=== PATIENT | female | born 1960 | race Caucasian/White ===

== ENCOUNTER → 2016-09-08 | Outpatient (CLI) | payer BC, OTHER ==
[~2016-09-08] MED LIST: ADVIN25/60 INH; ALBINS INH; ALBINS/ INH; AMLO5TAB2 PO; BENZ100C18 PO; CLON0.5T3 PO; DOXY100C76 PO; FLNIN/ NAE; INDSR/120 PO; IPRA1AER2 INH; LEVO1TAB35 PO; LORA-741 PO; LOSA100T65 PO; MIRT15TA3 PO; NXM/40 PO; PRED10TA PO; PRED50TA PO; SUCR1TAB PO; THY/30 PO; TIOTCAP INH; VITBC PO
== END | disposition home or self-care (01) ==
LOC: C.LABMFLN 10:25
PROVIDERS: ATTEND Family Medicine
DX: B37.0 Candidal stomatitis (principal)

== ENCOUNTER 2016-10-09 16:21 | Emergency (ER) | payer BC, OTHER ==
[~2016-10-09] VITALS: Ht 162.6 cm; Wt 70.8 kg
[~2016-10-09 16:21] MED LIST changes: -ADVIN25/60 INH; -ALBINS/ INH; -BENZ100C18 PO; -CLON0.5T3 PO; -FLNIN/ NAE; -IPRA1AER2 INH; -LEVO1TAB35 PO; -LOSA100T65 PO; -NXM/40 PO; -PRED50TA PO; -THY/30 PO; -VITBC PO
[2016-10-09 16:29] VITALS: Ht 162.6 cm; Wt 70.8 kg
[2016-10-09] MEDS ORDERED: ACETAMINOPHEN 500 MG TAB PO STA (16:44)
[2016-10-09] MEDS ORDERED: SODIUM CHLORIDE 0.9% 1000ML 1,000 ML IV STA (16:44)
[2016-10-09] MEDS ORDERED: BENZONATATE 100MG CAP PO ONE (16:45)
[2016-10-09 17:07] LABS: BASO % 0.9 %; BASO ABS # 0.05 K/uL (0-0.2); COMPLETE YES; EOS % 1.5 %; IG% 0.2 %; LYMPH % 19.4 %; LYMPH ABS # 1.13 K/uL (1.2-3.4); MEAN CELL VOLUME 94.8 fL (80-100); MEAN CORPUSCULAR HEMOGLOBIN 33.4 pg (25-34); MEAN CORPUSCULAR HGB CONC 35.2 g/dl (32-36); MEAN PLATELET VOLUME 11.4 fL (7.4-10.4); MONO % 16.3 %; NEUT % 61.7 %; PLATELET COUNT 221 K/uL (130-400); RED BLOOD COUNT 4.64 M/uL (4.2-5.4); WHITE BLOOD COUNT 5.83 K/uL (4.8-10.8)
--- NOTE | 2016-10-09 17:23 | DIAGNOSTIC IMAGING REPORT ---
CHEST ONE VIEW PORTABLE CLINICAL HISTORY: Cough and fever. COMPARISON STUDY: No previous studies for comparison. FINDINGS: Lung volumes are normal. There is no consolidation to suggest pneumonia. Minimal linear left basilar opacity is suggestive of atelectasis. Cardiac size is normal. Mediastinal contours are normal. There is no evidence of pulmonary edema. IMPRESSION: No acute cardiopulmonary findings. Electronically signed by: Qasim Pandya M.D. 10/09/2016 5:21 PM Dictated Date/Time: 10/09/2016 5:21 PM
[2016-10-09] MEDS ORDERED: ALBUT/IPRATROP 3MG/0.5MG NEB 3 ML VIAL INH STA (17:26)
[2016-10-09 17:28] LABS: BUN/CREATININE RATIO 10.9 (10-20); CREATININE 0.94 mg/dl (0.60-1.20); POTASSIUM 3.8 mmol/L (3.5-5.1)
[2016-10-09 17:40] VITALS: TEMP 36.9
[2016-10-09] MEDS ORDERED: LOSA100T65 PO (17:42)
[2016-10-09] MEDS ORDERED: FLNIN/ NAE (17:42)
[2016-10-09] MEDS ORDERED: IPRA1AER2 INH (17:42)
[2016-10-09] MEDS ORDERED: NXM/40 PO (17:42)
[2016-10-09] MEDS ORDERED: THY/30 PO (17:42)
[2016-10-09] MEDS ORDERED: ALBINS/ INH (17:42)
[2016-10-09] MEDS ORDERED: CLON0.5T3 PO ×2 (17:42)
[2016-10-09] MEDS ORDERED: VITBC PO (17:42)
[2016-10-09] MEDS ORDERED: ADVIN25/60 INH (17:44)
[2016-10-09] MEDS ORDERED: METHYLPREDNISOLONE 125 MG VIAL IV STA (18:20)
[2016-10-09] MEDS ORDERED: ALBUTEROL 0.083% NEBU SOLN 3 ML VIAL INH STA (18:20)
[2016-10-09] MEDS ORDERED: LEVOFLOXACIN 250 MG TAB PO ONE (18:30)
[2016-10-09] MEDS ORDERED: LEVO1TAB35 PO (19:52)
[2016-10-09] MEDS ORDERED: PRED50TA PO (19:52)
[2016-10-09] MEDS ORDERED: BENZ100C18 PO (19:52)
[2016-10-09 20:04] VITALS: BP 115/82; PULSE 97; O2SAT 93
--- NOTE | 2016-10-09 23:10 | EMERGENCY ROOM VISIT NOTE ---
History Report prepared by Kumar: Familia Lopez Under the Supervision of: Dr. Royce Sanchez D.O. First contact with patient: 16:34 Chief Complaint: ILLNESS Stated Complaint: FLU SYMPTOMS,HARD TIME BREATHING History of Present Illness The patient is a 56 year old female who presents to the Emergency Room with complaints of a persistent fever beginning two days prior to arrival. She currently rates her discomfort as a 10/10 in severity. The patient associates shortness of breath, productive cough with yellow sputum, sinus pressure, right lung pressure with coughing, and a sorethroat with today's symptoms. She states she did not take her temperature but has felt increasingly warm over the past two days. The patient notes she was treated for strep throat last month with a ten day course of antibiotics. She states she was told last spring that she has an enlarged lymph node in her lung, but denies following up in the recommended 3 -6 months. The patient notes a history of COPD, and states she is a current smoker. She states she tried using her inhaler without relief. The patient denies sick contact. Pt denies headache, change in vision, chest pain, nausea, vomiting, diarrhea, pain with urination, and melena. Source of History: patient Onset: two days [employer]CH[employer]ISING [employer]OCIATE Position: other (global) Symptom Intensity: 10/10 Quality: other (fever) Timing: other (persistent) Associated Symptoms: + cough (with yellow ), + fevers, + sorethroat Note: Associated symptoms: sinus pressure, right lung pressure Review of Systems See HPI for pertinent positives & negatives. A total of 10 systems reviewed and were otherwise negative. Past Medical & Surgical Medical Problems: (1) COPD (chronic obstructive pulmonary disease) (2) Strep throat Family History Patient reports no known family medical history. Social History Smoking Status: Current Every Day Smoker Marital Status: Occupation Status: other (housewife) Current/Historical Medications Scheduled Benzonatate (Tessalon Perles), 100 MG PO TID Clonazepam (Klonopin), 0.25 MG PO QAM Clonazepam (Klonopin), 0.5 MG PO QPM Fluticasone Prop/Salmeterol (Advair Diskus 250/50 60 Dose), 1 PUFF INH BID Ipratropium-Albuterol (Combivent Respimat), 1 PUFF INH QID Levofloxacin (Levaquin), 750 MG PO QD@08 Losartan Potassium (Cozaar), 100 MG PO DAILY Prednisone (Prednisone), 50 MG PO DAILY Thyroid ([place] Thyroid), 30 MG PO DAILY Vitamin B Complex (Vitamin B Complex), 1 TAB PO DAILY Scheduled PRN Albuterol Sulf (Proventil 0.083% 2.5MG/3ML), 2.5 MG INH Q6H PRN for Dyspnea Esomeprazole Magnesium (Nexium), 40 MG PO DAILY PRN for Indigestion Fluticasone Propionate (Fluticasone Propionate), 2 SPRAYS SKYLER DAILY PRN for Nasal Congestion Allergies Coded Allergies: Aspirin (Verified Allergy, Intermediate, HIVES, 07/13/15) Penicillins (Verified Allergy, Intermediate, HIVES, 07/13/15) Sulfa Drugs (Verified Allergy, Intermediate, HIVES, 07/13/15) Methimazole (Verified Allergy, Unknown, N/V, LIGHTHEADEDNESS, 07/13/15) Propylthiouracil (Verified Allergy, Unknown, ITCHING, 06/30/15) Thiamazole (Verified Allergy, Unknown, N/V, LIGHTHEADEDNESS, 06/30/15) Cephalexin (Verified Adverse Reaction, Mild, NAUSEA AND VOMITING, 06/30/15) Physical Exam Vital Signs Date Time Temp Pulse Resp B/P Pulse Ox O2 Delivery O2 Flow Rate FiO2 10/09/16 20:04 97 18 115/82 93 10/09/16 18:49 84 18 134/90 95 Room Air 10/09/16 17:40 36.9 78 18 138/99 98 Room Air 10/09/16 16:29 37.8 100 20 152/99 93 Room Air Physical Exam GENERAL: sitting up in bed, disheveled, no acute distress, non-toxic EYE EXAM: normal conjunctiva OROPHARYNX: no exudate, no erythema, lips, buccal mucosa, and tongue normal and mucous membranes are moist NECK: supple, no nuchal rigidity, no adenopathy, non-tender LUNGS: Clear to auscultation. Normal chest wall mechanics HEART: no murmurs, S1 normal and S2 normal ABDOMEN: abdomen soft, non-tender, normo-active bowel sounds, no masses, no rebound or guarding. BACK: Back is symmetrical on inspection and there is no deformity, no midline tenderness, no CVA tenderness. SKIN: no rashes and no bruising UPPER EXTREMITIES: upper extremities are grossly normal. LOWER EXTREMITIES: No pitting edema. Calves equal bilaterally. NEURO EXAM: Normal sensorium, cranial nerves II-XII grossly intact, normal speech, no gross weakness of arms, no gross weakness of legs. Medical Decision & Procedures ER Provider Diagnostic Interpretation: Xray results per the radiologist and my interpretation. Other results have been interpreted by the radiologist and reviewed by me. CHEST ONE VIEW PORTABLE CLINICAL HISTORY: Cough and fever. COMPARISON STUDY: No previous studies for comparison. FINDINGS: Lung volumes are normal. There is no consolidation to suggest pneumonia. Minimal linear left basilar opacity is suggestive of atelectasis. Cardiac size is normal. Mediastinal contours are normal. There is no evidence of pulmonary edema. IMPRESSION: No acute cardiopulmonary findings. Electronically signed by: Qasim Pandya M.D. 10/09/2016 5:21 PM Laboratory Results 10/09/16 17:00 Red Blood Count 4.64, Mean Corpuscular Volume 94.8, Mean Corpuscular Hemoglobin 33.4, Mean Corpuscular Hemoglobin Concent 35.2, Mean Platelet Volume 11.4, Neutrophils (%) (Auto) 61.7, Lymphocytes (%) (Auto) 19.4, Monocytes (%) (Auto) 16.3, Eosinophils (%) (Auto) 1.5, Basophils (%) (Auto) 0.9, Neutrophils # (Auto ) 3.60, Lymphocytes # (Auto) 1.13, Monocytes # (Auto) 0.95, Eosinophils # (Auto ) 0.09, Basophils # (Auto) 0.05 10/09/16 17:00 Test 10/09/16 17:00 White Blood Count 5.83 K/uL (4.8-10.8) Red Blood Count 4.64 M/uL (4.2-5.4) Hemoglobin 15.5 g/dL (12.0-16.0) Hematocrit 44.0 % (37-47) Mean Corpuscular Volume 94.8 fL (80-100) Mean Corpuscular Hemoglobin 33.4 pg (25-34) Mean Corpuscular Hemoglobin Concent 35.2 g/dl (32-36) Platelet Count 221 K/uL (130-400) Mean Platelet Volume 11.4 fL (7.4-10.4) Neutrophils (%) (Auto) 61.7 % Lymphocytes (%) (Auto) 19.4 % Monocytes (%) (Auto) 16.3 % Eosinophils (%) (Auto) 1.5 % Basophils (%) (Auto) 0.9 % Neutrophils # (Auto) 3.60 K/uL (1.4-6.5) Lymphocytes # (Auto) 1.13 K/uL (1.2-3.4) Monocytes # (Auto) 0.95 K/uL (0.11-0.59) Eosinophils # (Auto) 0.09 K/uL (0-0.5) Basophils # (Auto) 0.05 K/uL (0-0.2) RDW Standard Deviation 45.6 fL (36.4-46.3) RDW Coefficient of Variation 13.1 % (11.5-14.5) Immature Granulocyte % (Auto) 0.2 % Immature Granulocyte # (Auto) 0.01 K/uL (0.00-0.02) Anion Gap 11.0 mmol/L (3-11) Est Creatinine Clear Calc Drug Dose 66.1 ml/min Estimated GFR () 79.7 Estimated GFR (Non- 68.8 BUN/Creatinine Ratio 10.9 (10-20) Calcium Level 9.0 mg/dl (8.5-10.1) Influenza Type A Antigen Neg for Influ A (NEG) Influenza Type B Antigen Neg for Influ B (NEG) Laboratory results per my review. Medications Administered Medications (Trade) Dose Ordered Sig/Giselle Route Start Time Stop Time Status Last Admin Dose Admin Sodium Chloride (Nss 1000ml) 1,000 ml @ 999 mls/hr Q1H1M STAT IV 10/09/16 16:44 10/09/16 17:44 DC 10/09/16 17:05 999 MLS/HR Benzonatate (Tessalon Perles Cap) 100 mg NOW ONCE PO 10/09/16 16:45 10/09/16 16:46 DC 10/09/16 17:05 100 MG Acetaminophen (Tylenol Tab) 1,000 mg NOW STAT PO 10/09/16 16:44 10/09/16 16:46 DC 10/09/16 17:04 1,000 MG Albuterol/ Ipratropium (Duoneb) 3 ml NOW STAT INH 10/09/16 17:26 10/09/16 17:27 DC 10/09/16 17:31 3 ML Albuterol Sulfate (Ventolin 0.083% 2.5MG/3ML Neb) 2.5 mg NOW STAT INH 10/09/16 18:20 10/09/16 18:23 DC 10/09/16 18:39 2.5 MG Methylprednisolone Sodium Succinate (Solu-Medrol IV) 125 mg NOW STAT IV 10/09/16 18:20 10/09/16 18:23 DC 10/09/16 18:39 125 MG Levofloxacin (Levaquin Tab) 750 mg NOW ONCE PO 10/09/16 18:30 10/09/16 18:31 DC 10/09/16 18:39 750 MG ECG Indication: SOB/dyspnea Rate (beats per minute): 87 Rhythm: sinus rhythm Findings: Q waves (Septal), no ectopy Comparison ECG Date: no prior available ED Course ED COURSE: Vital signs were reviewed and showed tachycardic and febrile vitals. The patients medical record was reviewed The above diagnostic studies were performed and reviewed. ED treatments and interventions as stated above. 1637: The patient was evaluated in room B11B. A complete history and physical examination was performed. 1644: Ordered Tylenol Tab 1,000 mg PO, Sodium Chloride 1,000 ml @ 999 mls/hr IV. 1645: Ordered Benzonatate 100 mg PO. 1726: Ordered Duoneb 3 ml INH. 1815: Reevaluated and updated the patient at this time, and she is feeling better. 1820: Ordered Methylprednisolone Sodium Succinate 125 mg IV, Albuterol Sulfate 2.5 mg INH. 1830: Ordered Levaquin Tab 750 mg PO. 5: Upon reevaluation, the patient is doing well.I discussed my findings with the patient and she understands and agrees with the treatment plan. Based on the patients age, coexisting illnesses, exam and lab findings the decision to treat as an outpatient was made. The patient remained stable while under my care. The patient appeared well at the time of discharge. Medical Decision Differential diagnosis: Etiologies such as viral syndrome, otitis, pharyngitis, pneumonia, influenza, meningitis, urinary tract infection, sepsis, bacteremia, as well as others were entertained. Patient is a 56-year-old female who presents the ER for productive cough associated with sore throat and congestion which is been present for the past 24 hours. Labs show no significant leukocytosis or anemia. BMP was unremarkable. Patient denies any exertional chest pain or shortness of breath. No history of diabetes, hypertension, hyperlipidemia or CAD. Patient does have a history of COPD. She had some improvement of her symptoms with the neb treatment along with steroids and Tessalon Perles. She did become tachycardic with the 2 separate neb treatments. At no point was she dyspneic with conversation. She notes that she did feel better. I gave her dose of Levaquin as I feel this is a bronchitis. There is no focal infiltrate on chest x-ray. She denied any swelling of her calves, hemoptysis, previous blood clots. Based on her symptoms I did not pursue a PE. I did not pursue cardiac etiology either as this appears to be clearly infectious. Patient was updated bedside discharged follow-up with her PCP. She was instructed to continue her neb treatments at home along with steroids and antibiotics. Discussed with Pt concerning signs and symptoms to watch out for. Pt was instructed to follow up with their PCP and discussed with the patient their option to return to the ED at anytime for persistent or worsening symptoms. The appropriate anticipatory guidance and out-patient management, including indications for return to the emergency department, were explained at length to the patient and understood. Impression Primary Impression: COPD exacerbation Additional Impression: Bronchitis Scribe Attestation The scribe's documentation has been prepared under my direction and personally reviewed by me in its entirety. I confirm that the note above accurately reflects all work, treatment, procedures, and medical decision making performed by me. Departure Information Dispostion Home / Self-Care Prescriptions Levofloxacin (Levaquin) 750 Mg Tab 750 MG PO QD@08, #9 TAB Prov: Royce Sanchez, DO 10/09/16 Benzonatate (TESSALON PERLES) 100 Mg Cap 100 MG PO TID, #30 CAP Prov: Royce Sanchez, DO 10/09/16 Prednisone (PREDNISONE) 50 Mg Tab 50 MG PO DAILY for 4 Days, TAB Prov: Royce Sanchez, DO 10/09/16 Referrals Kenny Guevara M.D. (PCP) Forms HOME CARE DOCUMENTATION FORM, IMPORTANT VISIT INFORMATION, WORK / SCHOOL INSTRUCTIONS Patient Instructions ED Bronchitis Abx Tx, My [facility] Additional Instructions Please follow up with your primary care doctor with in the next 24 hours. Any worsening of your symptoms, please return to the ED immediately. This includes any fevers greater than 100.4, or system or worsening shortness breath, passing out, or any other concerning signs or symptoms from your standpoint. Please take Tessalon Perles as needed for coughing. Please use your inhalers as previously prescribed at home. Please use the steroids as prescribed. Problem Qualifiers
== END 2016-10-09 20:05 | disposition home or self-care (01) ==
LOC: C.EDB 16:22
DX: J44.1 Chronic obstructive pulmonary disease with (acute) exacerbation (principal); J44.0 Chronic obstructive pulmonary disease with (acute) lower respiratory infection; F17.210 Nicotine dependence, cigarettes, uncomplicated; Z79.899 Other long term (current) drug therapy

== ENCOUNTER → 2016-10-25 | Outpatient (CLI) | payer OTHER ==
[~2016-10-25] MED LIST changes: +ADVIN25/60 INH; -ALBINS INH; +ALBINS/ INH; -AMLO5TAB2 PO; +CLON0.5T3 PO; -DOXY100C76 PO; +FLNIN/ NAE; -INDSR/120 PO; +IPRA1AER2 INH; +LEVO1TAB35 PO; -LORA-741 PO; +LOSA100T65 PO; -MIRT15TA3 PO; +NXM/40 PO; -PRED10TA PO; -SUCR1TAB PO; +THY/30 PO; -TIOTCAP INH; +VITBC PO
[2016-10-25 18:51] LABS: BASO % 0.4 %; BASO ABS # 0.03 K/uL (0-0.2); COMPLETE YES; EOS % 2.7 %; IG% 0.3 %; LYMPH % 23.3 %; MEAN CORPUSCULAR HEMOGLOBIN 31.8 pg (25-34); MEAN CORPUSCULAR HGB CONC 33.9 g/dl (32-36); MEAN PLATELET VOLUME 11.9 fL (7.4-10.4); MONO % 8.4 %; NEUT % 64.9 %; PLATELET COUNT 275 K/uL (130-400); RED BLOOD COUNT 4.68 M/uL (4.2-5.4)
[2016-10-25 19:00] LABS: ALKALINE PHOSPHATASE 112 U/L (45-117); ALT/SGPT 29 U/L (12-78); AST/SGOT 11 U/L (15-37); C-REACTIVE PROTEIN 3.03 mg/dl (0-0.29); THYROID STIMULATING HORMONE 0.853 uIu/ml (0.300-4.500)
[2016-10-25 19:15] LABS: URINE APPEARANCE CLEAR (CLEAR); URINE BILIRUBIN NEG (NEG); URINE COLOR YELLOW; URINE EPITHELIAL CELL AUTO 0-5 /lpf (0-5); URINE NITRITE NEG (NEG); UROBILINOGEN NEG (NEG)
[2016-10-25 19:36] LABS: MANUAL MICROSCOPIC REQUIRED? NO; REVIEW REQ? NO
== END | disposition home or self-care (01) ==
LOC: C.LABMFLN 11:27
PROVIDERS: ATTEND Family Medicine
DX: E89.0 Postprocedural hypothyroidism (principal); R50.9 Fever, unspecified; I69.398 Other sequelae of cerebral infarction

== ENCOUNTER → 2016-11-01 | Outpatient (CLI) | payer OTHER | END | disposition home or self-care (01) | LOC: C.LABMFLN 15:09 | PROVIDERS: ATTEND Family Medicine | DX: J02.9 Acute pharyngitis, unspecified (principal) ==

== ENCOUNTER → 2016-11-14 | Outpatient (CLI) | payer OTHER ==
[~2016-11-14] MED LIST changes: +OPTIRAY 320 IV PRN
--- NOTE | 2016-11-14 16:09 | DIAGNOSTIC IMAGING REPORT ---
CT OF THE CHEST WITH IV CONTRAST CLINICAL HISTORY: R59.0 Mediastinal [id number] Abnormal chest [id number] COMPARISON STUDY: Chest x-ray dated 10/09/2016, outside CT scan dated 12/16/2015. TECHNIQUE: Following the IV administration of 104 mL of Optiray-320, CT of the thorax was performed from the thoracic inlet to the lung bases. Images are reviewed in the axial, sagittal, and coronal planes. IV contrast was administered without complication. CT DOSE: 258.76 mGy.cm FINDINGS: Thyroid: There is a multinodular thyroid gland. The largest nodule measures 14 mm. Thoracic aorta: The thoracic aorta is normal in course and caliber, noting standard 3-vessel arch anatomy. No aneurysm or dissection is seen. Pulmonary vasculature: The pulmonary trunk is normal in caliber. There are no central filling defects identified to suggest pulmonary embolus. Note that this examination was not protocoled for the evaluation of pulmonary emboli. HEART: The heart is normal in size and configuration, without pericardial effusion. Lungs and pleural spaces: There is pulmonary emphysema. There is no focal pulmonary consolidation. There are no pleural effusions. There are no suspicious pulmonary masses. Mediastinum: There are persistent enlarged mediastinal lymph nodes. There is a subcarinal lymph node with a short axis of 11 mm. There is an enlarged precarinal lymph node with a short axis of 11 mm. There is an enlarged lower left paratracheal lymph node. There are borderline enlarged AP window lymph nodes. Danita: There are mildly enlarged hilar lymph nodes, similar to the prior study. Axilla: Clear. Upper abdomen: There is mild adrenal gland thickening similar to the prior study. Skeletal structures: There are no lytic or blastic osseous lesions. IMPRESSION: 1. Mild mediastinal and hilar lymphadenopathy, similar to the prior November 2015 study 2. Emphysema 3. No evidence of focal pulmonary consolidation 4. Multinodular thyroid Electronically signed by: Gilbert Carr M.D. 11/14/2016 4:08 PM Dictated Date/Time: 11/14/2016 4:02 PM
== END | disposition home or self-care (01) ==
LOC: C.CTS 15:34
PROVIDERS: ATTEND Family Medicine
DX: R59.0 Localized enlarged lymph nodes (principal); R93.8 Abnormal findings on diagnostic imaging of other specified body structures

== ENCOUNTER → 2017-01-03 | Outpatient (CLI) | payer OTHER ==
[~2017-01-03] MED LIST changes: +HYDR25TA4 PO; +NRV/5 PO; +ONDA4TAB10 SL; -OPTIRAY 320 IV PRN
[2017-01-03 17:48] LABS: URINE APPEARANCE CLEAR (CLEAR); URINE BILIRUBIN NEG (NEG); URINE COLOR YELLOW; URINE NITRITE NEG (NEG); URINE SPECIFIC GRAVITY 1.008 (1.000-1.030); UROBILINOGEN NEG (NEG)
[2017-01-03 17:54] LABS: MANUAL MICROSCOPIC REQUIRED? NO; REVIEW REQ? NO
[2017-01-03 18:35] LABS: ALB/GLOB RATIO 1.1 (0.9-2); ALKALINE PHOSPHATASE 92 U/L (45-117); ALT/SGPT 29 U/L (12-78); AST/SGOT 17 U/L (15-37); BLOOD UREA NITROGEN 13 mg/dl (7-18); BUN/CREATININE RATIO 13.1 (10-20); CALCIUM 9.7 mg/dl (8.5-10.1); CARBON DIOXIDE 27 mmol/L (21-32); CHLORIDE 107 mmol/L (98-107); CREATININE 0.98 mg/dl (0.60-1.20); GLUCOSE 89 mg/dl (70-99); POTASSIUM 3.4 mmol/L (3.5-5.1); SODIUM 143 mmol/L (136-145)
[2017-01-03 18:46] LABS: THYROID STIMULATING HORMONE 0.968 uIu/ml (0.300-4.500)
== END | disposition home or self-care (01) ==
LOC: C.LABMFLN 08:58
PROVIDERS: ATTEND Family Medicine
DX: E89.0 Postprocedural hypothyroidism (principal); R60.0 Localized edema; R06.09 Other forms of dyspnea

== ENCOUNTER → 2017-01-31 | Outpatient (CLI) | payer OTHER | END | disposition home or self-care (01) | LOC: C.LABMFLN 11:34 | PROVIDERS: ATTEND Family Medicine | DX: R21 Rash and other nonspecific skin eruption (principal); J40 Bronchitis, not specified as acute or chronic ==

== ENCOUNTER → 2017-02-07 | Outpatient (CLI) | payer OTHER | END | disposition home or self-care (01) | LOC: C.MAMM 07:58 | PROVIDERS: ATTEND Family Medicine | DX: Z13.820 Encounter for screening for osteoporosis (principal) ==

== ENCOUNTER → 2017-05-30 | Outpatient (CLI) | payer OTHER ==
[~2017-05-30] MED LIST changes: -HYDR25TA4 PO; -LEVO1TAB35 PO; -NRV/5 PO; -ONDA4TAB10 SL
== END | disposition home or self-care (01) ==
LOC: C.LABMFLN 09:21
PROVIDERS: ATTEND Family Medicine
DX: J40 Bronchitis, not specified as acute or chronic (principal)

== ENCOUNTER → 2017-07-03 | Outpatient (CLI) | payer OTHER ==
[2017-07-03 18:00] LABS: HEMATOCRIT 48.9 % (37-47)
== END | disposition home or self-care (01) ==
LOC: C.LABMFLN 12:29
PROVIDERS: ATTEND Family Medicine
DX: E55.9 Vitamin D deficiency, unspecified (principal); R53.83 Other fatigue

== ENCOUNTER 2017-07-24 18:32 | Emergency (ER) | payer OTHER ==
[~2017-07-24] VITALS: Ht 162.6 cm; Wt 70.9 kg
[2017-07-24 18:57] VITALS: Ht 162.6 cm; Wt 70.9 kg
[2017-07-24] MEDS ORDERED: HYDR25TA4 PO (19:23)
[2017-07-24] MEDS ORDERED: NRV/5 PO (19:23)
[2017-07-24] MEDS ORDERED: MoRPHine SULFATE 4 MG/ML 1 ML CARP\\VIAL IV STA (19:37)
[2017-07-24] MEDS ORDERED: ONDANSETRON INJ 2 MG/ML 2 ML VIAL IV STA (19:37)
[2017-07-24] MEDS ORDERED: ACETAMINOPHEN 500 MG TAB PO STA (19:37)
[2017-07-24] MEDS ORDERED: KETOROLAC TROMETHAMINE 30 MG/ML VIAL IV STA (19:37)
--- NOTE | 2017-07-24 19:57 | EMERGENCY ROOM VISIT NOTE ---
History Report prepared by Kumar: Yulisa Boswell Under the Supervision of: Dr. Hiram Barraza M.D. First contact with patient: 19:32 Chief Complaint: GI ASSESSMENT Stated Complaint: RIGHT FLANK PAIN History of Present Illness The patient is a 57 year old white female with a past medical history of digestive issues, graves disease, and COPD who presents to the ED with a cc of constant right flank pain beginning 1 week ago. Pt reports that she has been having right flank and abdominal pain. She states that she had a scan a week ago and it showed no kidney stones or polyps. Positive bloating, belching, acid reflux, sore throat, headache. She notes that she has taken Nexium with some relief of her symptoms but eating worsens her pain. The patient notes that she is a smoker Source of History: patient Onset: 1 week ago Position: other (right flank pain) Quality: other (cramping) Timing: constant Associated Symptoms: + headache, + sorethroat, + abdominal pain Note: The patient complains of bloating, belching, and reflux. Review of Systems See HPI for pertinent positives and negatives. A total of ten systems were reviewed and were otherwise negative. Past Medical & Surgical Medical Problems: (1) COPD (chronic obstructive pulmonary disease) (2) Strep throat Family History Patient reports no known family medical history. Social History Smoking Status: Current Every Day Smoker Marital Status: Housing Status: lives with significant other Occupation Status: other Current/Historical Medications Scheduled Amlodipine Besylate (Amlodipine Besylate), 5 MG PO DAILY Clonazepam (Klonopin), 0.25 MG PO QAM Clonazepam (Klonopin), 0.5 MG PO QPM Fluticasone Prop/Salmeterol (Advair Diskus 250/50 60 Dose), 1 PUFF INH BID Hydrochlorothiazide (Hctz), 12.5 MG PO DAILY Ipratropium-Albuterol (Combivent Respimat), 1 PUFF INH QID Ondasetron Odt (Zofran Odt), 4 MG SL Q6H Thyroid ([place] Thyroid), 30 MG PO DAILY Vitamin B Complex (Vitamin B Complex), 1 TAB PO DAILY Scheduled PRN Albuterol Sulf (Proventil 0.083% 2.5MG/3ML), 2.5 MG INH Q6H PRN for Dyspnea Esomeprazole Magnesium (Nexium), 40 MG PO DAILY PRN for Indigestion Fluticasone Propionate (Fluticasone Propionate), 2 SPRAYS SKYLER DAILY PRN for Nasal Congestion Allergies Coded Allergies: Aspirin (Verified Allergy, Intermediate, HIVES, 07/24/17) Penicillins (Verified Allergy, Intermediate, HIVES, 07/24/17) Sulfa Antibiotics (Verified Allergy, Intermediate, hives, 07/24/17) Propylthiouracil (Verified Allergy, Unknown, ITCHING, 06/30/15) Cephalexin (Verified Adverse Reaction, Mild, NAUSEA AND VOMITING, 07/24/17 ) Methimazole (Verified Adverse Reaction, Unknown, N/V, LIGHTHEADEDNESS, ) Thiamazole (Verified Adverse Reaction, Unknown, N/V, LIGHTHEADEDNESS, ) Physical Exam Vital Signs Date Time Temp Pulse Resp B/P (MAP) Pulse Ox O2 Delivery O2 Flow Rate FiO2 07/24/17 22:19 36.7 80 14 112/70 98 Room Air 07/24/17 21:32 72 17 90 07/24/17 21:31 112/73 07/24/17 21:29 75 07/24/17 21:16 120/82 07/24/17 20:18 78 16 130/89 98 Room Air 07/24/17 18:57 36.7 102 18 118/86 97 Room Air Physical Exam GENERAL: Awake, alert, well-appearing, NAD HENT: Normocephalic, atraumatic. EYES: Normal conjunctiva. Sclera non-icteric. NECK: Supple. No nuchal rigidity. FROM. RESPIRATORY: CTAB, no rhonchi, wheezing, crackles CARDIAC: RRR, no MRG ABDOMEN: Soft, RUQ pain, BS+ MSK: No chest wall TTP, no LE edema NEURO: GCS 15, CN 2-12 intact, moves all 4s on command SKIN: No rash or jaundice noted. Medical Decision & Procedures ER Provider Diagnostic Interpretation: Radiology results as stated below per my review and radiologist interpretation: GALLBLADDER-ABD LIMITED FINDINGS: Pancreas: Visualized portions of the pancreatic head and body normal. Liver: Normal echogenicity and echotexture. The liver measures 15 cm in maximal sagittal dimension. No sonographic evidence of hepatic mass. Main portal vein patent with normal directional flow. Biliary: No intrahepatic biliary ductal dilatation. Common bile duct measures up to 3 mm in diameter. Gallbladder: Subcentimeter isoechoic polypoid focus near the gallbladder neck without posterior shadowing and nondependent, likely small cholesterol polyp. No gallbladder wall thickening or gallbladder distention. No gallstones. Right kidney: Normal in appearance. No hydronephrosis. Ascites: None. IMPRESSION: No cholelithiasis or biliary ductal dilatation. Suspected subcentimeter cholesterol polyp. Electronically signed by: Krishna Ulloa M.D. 07/24/2017 9:36 PM Dictated Date/Time: 07/24/2017 9:35 PM CHEST ONE VIEW PORTABLE FINDINGS: Cardiomediastinal silhouette normal. Persistent minimal linear opacity in the lingula. Lungs and pleural spaces otherwise clear. Osseous structures normal. Upper abdomen normal. IMPRESSION: 1. Persistent minimal scarring or atelectasis in the lingula. Otherwise no acute cardiopulmonary disease. Electronically signed by: Krishna Ulloa M.D. 07/24/2017 8:21 PM Dictated Date/Time: 07/24/2017 8:20 PM Laboratory Results 07/24/17 20:05 Red Blood Count 4.99, Mean Corpuscular Volume 96.4, Mean Corpuscular Hemoglobin 34.1, Mean Corpuscular Hemoglobin Concent 35.3, Mean Platelet Volume 11.5, Neutrophils (%) (Auto) 59.8, Lymphocytes (%) (Auto) 26.2, Monocytes (%) (Auto) 10.3, Eosinophils (%) (Auto) 2.8, Basophils (%) (Auto) 0.5, Neutrophils # (Auto ) 4.67, Lymphocytes # (Auto) 2.04, Monocytes # (Auto) 0.80, Eosinophils # (Auto ) 0.22, Basophils # (Auto) 0.04 07/24/17 20:05 Test 07/24/17 20:05 07/24/17 20:20 White Blood Count 7.80 K/uL (4.8-10.8) Red Blood Count 4.99 M/uL (4.2-5.4) Hemoglobin 17.0 g/dL (12.0-16.0) Hematocrit 48.1 % (37-47) Mean Corpuscular Volume 96.4 fL (80-100) Mean Corpuscular Hemoglobin 34.1 pg (25-34) Mean Corpuscular Hemoglobin Concent 35.3 g/dl (32-36) Platelet Count 257 K/uL (130-400) Mean Platelet Volume 11.5 fL (7.4-10.4) Neutrophils (%) (Auto) 59.8 % Lymphocytes (%) (Auto) 26.2 % Monocytes (%) (Auto) 10.3 % Eosinophils (%) (Auto) 2.8 % Basophils (%) (Auto) 0.5 % Neutrophils # (Auto) 4.67 K/uL (1.4-6.5) Lymphocytes # (Auto) 2.04 K/uL (1.2-3.4) Monocytes # (Auto) 0.80 K/uL (0.11-0.59) Eosinophils # (Auto) 0.22 K/uL (0-0.5) Basophils # (Auto) 0.04 K/uL (0-0.2) RDW Standard Deviation 48.6 fL (36.4-46.3) RDW Coefficient of Variation 13.8 % (11.5-14.5) Immature Granulocyte % (Auto) 0.4 % Immature Granulocyte # (Auto) 0.03 K/uL (0.00-0.02) Anion Gap 8.0 mmol/L (3-11) Est Creatinine Clear Calc Drug Dose 64.6 ml/min Estimated GFR () 78.2 Estimated GFR (Non- 67.4 BUN/Creatinine Ratio 12.9 (10-20) Calcium Level 9.9 mg/dl (8.5-10.1) Total Bilirubin 0.3 mg/dl (0.2-1) Direct Bilirubin < 0.1 mg/dl (0-0.2) Aspartate Amino Transf (AST/SGOT) 13 U/L (15-37) Alanine Aminotransferase (ALT/SGPT) 25 U/L (12-78) Alkaline Phosphatase 106 U/L (45-117) Total Protein 8.0 gm/dl (6.4-8.2) Albumin 3.9 gm/dl (3.4-5.0) Lipase 102 U/L (73-393) Urine Color YELLOW Urine Appearance CLEAR (CLEAR) Urine pH 6.0 (4.5-7.5) Urine Specific [place] 1.013 (1.000-1.030) Urine Protein NEG (NEG) Urine Glucose (UA) NEG (NEG) Urine Ketones NEG (NEG) Urine Occult Blood NEG (NEG) Urine Nitrite NEG (NEG) Urine Bilirubin NEG (NEG) Urine Urobilinogen NEG (NEG) Urine Leukocyte Esterase NEG (NEG) Laboratory results reviewed by me Medications Administered Medications (Trade) Dose Ordered Sig/Giselle Route Start Time Stop Time Status Last Admin Dose Admin Ondansetron HCl (Zofran Inj) 4 mg NOW STAT IV 07/24/17 19:37 07/24/17 19:38 DC 07/24/17 20:09 4 MG Ketorolac Tromethamine (Toradol Inj) 30 mg NOW STAT IV 07/24/17 19:37 07/24/17 19:38 DC 07/24/17 20:10 30 MG Acetaminophen (Tylenol Tab) 1,000 mg NOW STAT PO 07/24/17 19:37 07/24/17 19:38 DC 07/24/17 20:10 1,000 MG Morphine Sulfate (MoRPHine SULFATE INJ) 4 mg NOW STAT IV 07/24/17 19:37 07/24/17 19:38 DC 07/24/17 20:09 4 MG ECG Indication: abdominal pain Rate (beats per minute): 82 Rhythm: normal sinus Findings: Q waves (V1 and V2), left axis deviation, other (normal intervals, no other STS or TWI) Comparison ECG Date: 09-OCT-2016 Change: no significant change ED Course 1931: The patient was evaluated in room B7. A complete history and physical exam was performed. 2149: I talked to the patient at length and she will speak to Case Management about outpatient followup. 2158: I reevaluated the patient. Discussed results and discharge instructions: She verbalized understanding and agreement. The patient is ready for discharge. Medical Decision Differential diagnosis: Etiologies such as encounter for smoking cessation, appendicitis, diverticulitis , PUD, biliary pathology, UTI, pancreatitis, obstruction, mesenteric ischemia, aortic pathology, infections, inflammatory bowel disease, renal colic, as well as others were entertained. The patient is a 57 year old white female with a past medical history of digestive issues, graves disease, and COPD who presents to the ED with a cc of constant right flank pain beginning 1 week ago. Patient was seen and evaluated at the bedside. Patient had been putting some right-sided flank pain as well as right upper quadrant type pain. Patient states that she had a right upper quadrant ultrasound that was negative several weeks prior. Patient states that she was pending evaluation further with a HIDA scan. Patient had had an EGD prior which showed some gastritis with Dr. whelan. Patient still is a smoker and was counseled on smoking cessation. Patient was given symptomatic control and did have blood work completed along with a troponin EKG to rule out atypical ACS type symptoms. Patient also did have a repeat right upper quadrant ultrasound completed. Patient's pain was mildly improved. Patient's blood work was fairly unremarkable. Patient with blood cell count was within normal limits. Patient had normal kidney function. No elevations in LFTs or lipase. Her upper quadrant ultrasound did not show any gallbladder wall thickening, pericholecystic fluid, or dilatation of the CBD. The tech states did show small gallstones however the formal read did not show any gallstones. Patient was told that she could follow-up with the general surgeon discuss elective cholecystectomy bed as the patient's blood work is fairly unremarkable and she has a normal right upper quadrant ultrasounds did not require any acute intervention. Patient furthermore was told that this may be related to her smoking and she may have an element of gastritis or peptic or duodenal ulcer disease. Patient's EKG did show some anterior Q waves however this was unchanged from prior. Patient point of care troponin was negative. Less likely to be ACS or atypical chest pain. Patient was told to eat soft foods avoid things with spicy or citrus, caffeine, head mechanic, and chocolate. Patient was also told to avoid lying down after eating. Case management did come and speak with the patient to follow-up with the general surgeon to discuss possible elective surgical cholecystectomy. Patient was also told to follow-up with her business analyst sales operations and obtain the HIDA scan. Patient was able tolerate by mouth and her pain was improved. Patient was given strict follow-up, discharge, and return precautions. All questions were answered. Patient was deemed suitable for outpatient follow-up at this time. Patient agreed with the plan of care and was safely discharged home. Medication Reconcilliation Current Medication List: was personally reviewed by me Blood Pressure Screening Patient's blood pressure: Normal blood pressure Blood pressure disposition: Did not require urgent referral Impression Primary Impression: RUQ abdominal pain Additional Impressions: Encounter for smoking cessation counseling GERD (gastroesophageal reflux disease) Scribe Attestation The scribe's documentation has been prepared under my direction and personally reviewed by me in its entirety. I confirm that the note above accurately reflects all work, treatment, procedures, and medical decision making performed by me. Departure Information Dispostion Home / Self-Care Prescriptions Ondasetron Odt (ZOFRAN ODT) 4 Mg Tab 4 MG SL Q6H for Nausea, #6 TAB Prov: Hiram Barraza M.D. 07/24/17 Referrals Kenny Guevara M.D. (PCP) Patient Instructions GERD, My [facility] Additional Instructions Please return to the emergency department if you have worsening or recurrent symptoms not amenable to at-home treatment. Please call for a follow-up appointment with her primary care physician. Please take your medications as prescribed. If you have other concerns and/or complaints please feel free to also call your primary care physician's office or return the ED for further evaluation, management, and treatment. You were found to have an elevated blood pressure today (>120 sytolic or >90 diastolic). Per medicare guidelines, you need to follow up with this blood pressure screening with your Primary Care Physician (PCP). For a new PCP call [phone]. You received narcotic or benzodiazepene medication while in the emergency room today. This is an addictive medication that may cause drowziness as well as constipation. Do not drive, operate heavy machinery, or drink alcohol under the influence of this medication. You may take 600 mg Ibuprofen every 6 hours as needed for pain with food for no more than 2 consecutive days. You may take tylenol 1000 mg every 6 hours as needed for pain. You may take motrin and tylenol separately or at the same time. Take your medications as prescribed. If taking an antibiotic consider taking a probiotic and/or eating yogurt, but at the least, please take with food as it can cause upset stomach. If culture results are not available at discharge, if they are positive for concern of infection, you will be informed of the results as soon as they are available. If you were seen between 11pm and 7AM all radiology reads will be re-read by our in house staff. If any major discrepancies are discovered, you will be notified. You have been examined and treated today on an emergency basis only. This is not a substitute for, or an effort to provide, complete comprehensive medical care. It is impossible to recognize and treat all injuries or illnesses in a single emergency department visit. It is therefore important that you follow up closely with [facility], your PCP, and/or your specialist(s). Call as soon as possible for an appointment. Thank you for your time and consideration. I look forward to speaking with you again soon. Please don't hesitate to call us if you have any questions. Problem Qualifiers Additional Impressions: GERD (gastroesophageal reflux disease) Esophagitis presence: esophagitis presence not specified Qualified Codes: K21.9 - Gastro-esophageal reflux disease without esophagitis
--- NOTE | 2017-07-24 20:23 | DIAGNOSTIC IMAGING REPORT ---
CHEST ONE VIEW PORTABLE CLINICAL HISTORY: 57 years-old Female presenting with ABDOMINAL PAIN/GI. TECHNIQUE: Portable upright AP view of the chest was obtained. COMPARISON: 10/09/[address] from 11/14/2016. FINDINGS: Cardiomediastinal silhouette normal. Persistent minimal linear opacity in the lingula. Lungs and pleural spaces otherwise clear. Osseous structures normal. Upper abdomen normal. IMPRESSION: 1. Persistent minimal scarring or atelectasis in the lingula. Otherwise no acute cardiopulmonary disease. Electronically signed by: Krishna Ulloa M.D. 07/24/2017 8:21 PM Dictated Date/Time: 07/24/2017 8:20 PM
[2017-07-24 20:27] LABS: BASO % 0.5 %; BASO ABS # 0.04 K/uL (0-0.2); COMPLETE YES; EOS % 2.8 %; HEMATOCRIT 48.1 % (37-47); IG% 0.4 %; LYMPH % 26.2 %; LYMPH ABS # 2.04 K/uL (1.2-3.4); MEAN CELL VOLUME 96.4 fL (80-100); MEAN CORPUSCULAR HEMOGLOBIN 34.1 pg (25-34); MEAN CORPUSCULAR HGB CONC 35.3 g/dl (32-36); MEAN PLATELET VOLUME 11.5 fL (7.4-10.4); MONO % 10.3 %; NEUT % 59.8 %; PLATELET COUNT 257 K/uL (130-400); RED BLOOD COUNT 4.99 M/uL (4.2-5.4)
[2017-07-24 20:44] LABS: ALT/SGPT 25 U/L (12-78); BLOOD UREA NITROGEN 12 mg/dl (7-18); BUN/CREATININE RATIO 12.9 (10-20); CALCIUM 9.9 mg/dl (8.5-10.1); CARBON DIOXIDE 27 mmol/L (21-32); CHLORIDE 106 mmol/L (98-107); CREATININE 0.95 mg/dl (0.60-1.20); GLUCOSE 84 mg/dl (70-99); POTASSIUM 3.5 mmol/L (3.5-5.1); SODIUM 140 mmol/L (136-145)
[2017-07-24 20:45] LABS: URINE APPEARANCE CLEAR (CLEAR); URINE BILIRUBIN NEG (NEG); URINE COLOR YELLOW; URINE NITRITE NEG (NEG); URINE SPECIFIC GRAVITY 1.013 (1.000-1.030); UROBILINOGEN NEG (NEG); ZZUR CULT IF INDIC CLEAN CATCH NO
[2017-07-24 20:47] LABS: ALKALINE PHOSPHATASE 106 U/L (45-117); AST/SGOT 13 U/L (15-37)
[2017-07-24 20:51] LABS: MANUAL MICROSCOPIC REQUIRED? NO; REVIEW REQ? NO
--- NOTE | 2017-07-24 21:38 | DIAGNOSTIC IMAGING REPORT ---
GALLBLADDER-ABD LIMITED CLINICAL HISTORY: 57 years-old Female presenting with RUQ pain. TECHNIQUE: Real-time grayscale and limited color Doppler ultrasound imaging of the abdomen limited to the right upper quadrant was performed. COMPARISON: None. FINDINGS: Pancreas: Visualized portions of the pancreatic head and body normal. Liver: Normal echogenicity and echotexture. The liver measures 15 cm in maximal sagittal dimension. No sonographic evidence of hepatic mass. Main portal vein patent with normal directional flow. Biliary: No intrahepatic biliary ductal dilatation. Common bile duct measures up to 3 mm in diameter. Gallbladder: Subcentimeter isoechoic polypoid focus near the gallbladder neck without posterior shadowing and nondependent, likely small cholesterol polyp. No gallbladder wall thickening or gallbladder distention. No gallstones. Right kidney: Normal in appearance. No hydronephrosis. Ascites: None. IMPRESSION: No cholelithiasis or biliary ductal dilatation. Suspected subcentimeter cholesterol polyp. Electronically signed by: Krishna Ulloa M.D. 07/24/2017 9:36 PM Dictated Date/Time: 07/24/2017 9:35 PM
[2017-07-24] MEDS ORDERED: ONDA4TAB10 SL (21:52)
[2017-07-24 22:19] VITALS: BP 112/70; PULSE 80; TEMP 36.7; O2SAT 98
== END 2017-07-24 22:39 | disposition home or self-care (01) ==
LOC: C.EDB 18:33
DX: K21.9 Gastro-esophageal reflux disease without esophagitis (principal); Z71.6 Tobacco abuse counseling; F17.200 Nicotine dependence, unspecified, uncomplicated; J44.9 Chronic obstructive pulmonary disease, unspecified; E05.00 Thyrotoxicosis with diffuse goiter without thyrotoxic crisis or storm; Z79.51 Long term (current) use of inhaled steroids

== ENCOUNTER 2017-08-10 07:00 | Day surgery (SDC) | payer OTHER ==
[2017-08-08 13:36] VITALS: BMI 26.0
[~2017-08-10] VITALS: Ht 162.6 cm; Wt 70.5 kg
[~2017-08-10 07:00] MED LIST changes: +ACETAMINOPHEN 1000 MG/100 ML IV IV ONE; +CLINDAMYCIN 600 MG/54 ML D5W IV SCH; +ERGO500037 PO; +ESOM20GR PO; +HYDR25TA4 PO; +LACTATED RINGER'S 1000ML 1,000 ML IV SCH; -LOSA100T65 PO; +NRV/5 PO; -NXM/40 PO; +ONDA4TAB10 SL; -VITBC PO
[2017-08-10 07:20] VITALS: BP 131/84; PULSE 102; TEMP 36.8; O2SAT 95; Ht 162.6 cm; Wt 70.5 kg
[2017-08-10] MEDS ORDERED: MIDAZOLAM HCL 1 MG/ML 2ML VIAL ONE (07:24)
[2017-08-10] MEDS ORDERED: PROPOFOL IV EMULSION 10 MG/ML 20 ML VIAL IV ONE (07:24)
[2017-08-10] MEDS ORDERED: FENTANYL CITRATE INJ 50 MCG/1 ML 2 ML VIAL ONE ×3 (07:24→09:27)
[2017-08-10] MEDS ORDERED: LIDOCAINE HCL 2% 2 ML VIAL (20MG/ML) ONE (07:24)
[2017-08-10] MEDS ORDERED: ATROPINE SULFATE 0.1 MG/ML 5ML SYR IV PRN (08:15)
[2017-08-10] MEDS ORDERED: ONDANSETRON INJ 2 MG/ML 2 ML VIAL IV PRN ×2 (08:15→10:00)
[2017-08-10] MEDS ORDERED: FENTANYL CITRATE INJ 50 MCG/1 ML 2 ML VIAL IV PRN (08:15)
[2017-08-10] MEDS ORDERED: EpHEDrine SULFATE INJ 50 MG/ML AMP IV PRN (08:15)
--- NOTE | 2017-08-10 08:15 | History & Physical Bridge Note ---
H&P Re-Evaluation Bridge Note: I have examined the patient, reviewed the History & Physical and in the interval since the performance of the History & Physical I have noted the following changes of clinical significance: No changes noted
[2017-08-10] MEDS ORDERED: BUPIVACAINE/EPINEPHRINE 0.5% MPF 1:200,000 30 ML VIAL ONE (08:23)
[2017-08-10] MEDS ORDERED: SUCCINYLCHOLINE 100MG/5ML SYR IV ONE (09:01)
[2017-08-10] MEDS ORDERED: ONDANSETRON INJ 2 MG/ML 2 ML VIAL ONE (09:27)
[2017-08-10] MEDS ORDERED: NEOSTIGMINE METHYLSULFATE 5 MG/5 ML SYR ONE (09:27)
[2017-08-10] MEDS ORDERED: DEXAMETHASONE SOD INJ 4 MG/ML VIAL ONE (09:27)
[2017-08-10] MEDS ORDERED: GLYCOPYRROLATE INJ 0.2 MG/ML VIAL ONE (09:27)
[2017-08-10] MEDS ORDERED: HYDR-5688 PO (09:49)
[2017-08-10] MEDS ORDERED: SODIUM CHLORIDE 0.9% 1000ML 1,000 ML IV SCH (09:53)
--- NOTE | 2017-08-10 09:53 | Discharge Instructions ---
Discharge Instructions Date of Service Aug 10, 2017. Visit Reason for Visit: Gallstones, Gallstone Polyp Discharge Discharge Diagnosis / Problem: Gallstones, Gallstone polyp Discharge Goals Goal(s): Decrease discomfort, Improve function Activity Recommendations Activity Limitations: as noted below Lifting Limitations: no more than 10 pounds, until after follow-up appointment Exercise/Sports Limitations: until after follow-up appointment Shower/Bathe: tomorrow Driving or Machine Use: resume 3 days after discharge (Do not drive while using narcotic pain medication) Anesthesia . Post Anesthesia Instructions: If you have had General Anesthesia or IV Sedation: * Do not drive today. * Resume driving when surgeon permits. * Do not make important decisions or sign legal documents today. * Call surgeon for: 1. Temperature elevations greater than 101 degrees F. 2. Uncontrollable pain. 3. Excessive bleeding. 4. Persistent nausea and vomiting. 5. Medication intolerance (nausea, vomiting or rash). * For nausea and vomiting use only clear liquids such as: tea, soda, bouillon until nausea subsides, then gradually increase diet as tolerated. * If you have any concerns or questions, call your surgeon's office. If physician is unavailable and it is an emergency, call 911 or go to the nearest emergency room. . Instructions / Follow-Up Instructions / Follow-Up You have surgical glue covering your incisions. Please allow this to fall off on its own. You have been prescribed Glendo to take as needed for pain relief. You may alternate this with ibuprofen for better pain relief as well. Please follow-up with Dr. Guevara in 2 weeks. Please call our office at to schedule an appointment if you have not done so already. Please contact our office with any questions or concerns. [facility]. [address] [place] [address]. Diet Recommendations Recommended Home Diet: no limitations, resume previous diet Procedures Procedures Performed: Laparoscopic cholecystectomy Pending Studies Studies pending at discharge: yes List of pending studies: Pathology Medical Emergencies . Who to Call and When: Medical Emergencies: If at any time you feel your situation is an emergency, please call 911 immediately. . Non-Emergent Contact Non-Emergency issues call your: Primary Care Provider, Surgeon Call Non-Emergent contact if: you have a fever, temperature is above 101.5, your pain is not controlled, your pain is worsening, wound has increased drainage, wound has increased redness, you have any medication questions . . "Provider Documentation" section prepared by Enrrique Rodriguez. . [place] Drug Monitoring Program Search Results: patient reviewed within database, no issues identified
[2017-08-10] MEDS ORDERED: HYDROCODONE/ACETAMOPHEN 5/325MG TAB PO PRN ×2 (10:00)
[2017-08-10] MEDS ORDERED: ROCURONIUM BROMIDE 10 MG/ML 5 ML VIAL IV ONE (10:25)
--- NOTE | 2017-08-10 10:48 | Anesthesiology Progress Note ---
Anesthesia Post Op Note Date & Time Aug 10, 2017 at 10:47 Vital Signs Pain Intensity: 2 Vital Signs Past 12 Hours Date Time Temp Pulse Resp B/P (MAP) Pulse Ox O2 Delivery O2 Flow Rate FiO2 08/10/17 10:31 81 16 96/67 91 08/10/17 10:31 78 16 08/10/17 10:30 69 10 93 08/10/17 10:30 69 10 08/10/17 10:26 102/72 08/10/17 10:25 77 19 08/10/17 10:25 75 19 94 08/10/17 10:21 107/76 08/10/17 10:20 82 15 93 08/10/17 10:20 83 15 08/10/17 10:16 114/80 08/10/17 10:15 83 18 91 08/10/17 10:15 84 18 08/10/17 10:11 120/82 08/10/17 10:10 88 18 93 08/10/17 10:10 88 18 08/10/17 10:09 89 17 08/10/17 10:09 89 17 94 08/10/17 10:06 132/89 08/10/17 10:04 89 15 99 08/10/17 10:04 91 15 08/10/17 10:03 84 17 08/10/17 10:03 84 17 100 08/10/17 10:01 126/88 08/10/17 09:58 82 15 100 08/10/17 09:58 82 15 08/10/17 09:57 85 14 100 08/10/17 09:57 84 14 08/10/17 09:56 135/94 08/10/17 09:52 83 14 08/10/17 09:52 83 14 100 08/10/17 09:51 138/89 08/10/17 09:48 128/88 08/10/17 09:47 36.3 84 10 128/88 100 Oxymask 10 08/10/17 07:20 36.8 102 20 131/84 (100) 95 Room Air Notes Mental Status: alert / awake / arousable, participated in evaluation Pt Amnestic to Procedure: Yes Nausea / Vomiting: adequately controlled Pain: adequately controlled Airway Patency, RR, SpO2: stable & adequate BP & HR: stable & adequate Hydration State: stable & adequate Anesthetic Complications: no major complications apparent
[2017-08-10 10:55] VITALS: BP 107/76; PULSE 82; TEMP 36.6; O2SAT 92
[2017-08-10 12:25] VITALS: BP 99/68; PULSE 70; O2SAT 98
--- NOTE | 2017-08-10 12:46 | [facility] Operative Report ---
Operative Report Operative Date Aug 10, 2017. Pre-Operative Diagnosis Gallbladder polyp, gallbladder calculus without cholecystitis. Post-Operative Diagnosis Same as preop. Procedure(s) Performed Laparoscopic cholecystectomy Surgeon Dr. Guevara Mechanical Equipment Test Engineer Surgeon(s) Enrrique Michaels Estimated Blood Loss 5 ml Findings essentially normal anatomy Specimens A: Gallbladder Anesthesia get Complication(s) None Disposition Recovery Room / PACU Description of Procedure After informed consent was obtained the patient was taken to the operating room and placed in a supine position. After successful intubation the abdomen was sterilely prepped and draped in usual fashion. A supraumbilical incision was made with an 11 blade scalpel and carried down through the soft tissue using electrocautery. The anterior rectus fascia was opened using electrocautery and 2 #0 Vicryl stay sutures were placed. Blunt finger penetration was used to enter the peritoneum and take down any adhesions. A 12 mm Og trocar was placed in the abdomen was insufflated 18 mmHg. The Laparoscope was inserted and the abdomen examined 360. There was a small white spot on the serosa of small bowel near the trocar site. I suspect it was nothing but just as a reassurance I did deliver it out of the Og trocar site and imbricated it with 3-0 silk just in case it was a small thermal injury from the cautery. There certainly was no serosal or mucosal penetration. No other abnormalities were identified. A subxiphoid 5 mm port and 2 right upper quadrant 3 mm ports were placed under direct vision. The patient was placed in a reverse Trendelenburg position and slightly airplaned to the left. The gallbladder was grasped and elevated superiorly and laterally. A [place] dissector was used to take down adhesions around the neck of the gallbladder. The cystic duct was identified skeletonized clipped twice proximally once distally and transected. In similar fashion the cystic artery was identified skeletonized , clipped and divided. The gallbladder was removed from the gallbladder fossa intact using electrocautery. It was placed into an Endo Catch bag. There were no bleeding points and no evidence of any bile leak. We did irrigate the right upper quadrant. We did look around the abdomen including under the left lobe of the liver. It was no hiatal hernia, small bowel, large bowel ,stomach and spleen all looked normal. No other gross abnormalities were identified. We removed all the trochars as well as the gallbladder. The fascia of the camera port was closed using 0 Vicryl in a [id number] fashion. All the wounds were irrigated and closed using 4-0 Monocryl. Marcaine was injected around him for postoperative analgesia and skin glue used as a dressing. Patient was awaken extubated and transferred recovery in stable condition I attest to the content of the Intraoperative Record and any orders documented therein. Any exceptions are noted below.
[2017-08-10 12:55] VITALS: BP 103/71; PULSE 74; TEMP 36.7; O2SAT 98
[2017-08-10 13:45] VITALS: BP 104/70; PULSE 76; TEMP 36.5; O2SAT 98
== END 2017-08-10 13:50 | disposition home or self-care (01) ==
LOC: C.ACU 07:00
PROVIDERS: ATTEND Surgery
DX: K81.1 Chronic cholecystitis (principal); J44.9 Chronic obstructive pulmonary disease, unspecified; K21.9 Gastro-esophageal reflux disease without esophagitis; F17.200 Nicotine dependence, unspecified, uncomplicated; F32.9 Major depressive disorder, single episode, unspecified; I10 Essential (primary) hypertension; R89.0 Abnormal level of enzymes in specimens from other organs, systems and tissues; I69.398 Other sequelae of cerebral infarction; R52 Pain, unspecified; Z82.49 Family history of ischemic heart disease and other diseases of the circulatory system; Z80.0 Family history of malignant neoplasm of digestive organs

== ENCOUNTER → 2017-09-22 | Outpatient (CLI) | payer OTHER ==
[~2017-09-22] MED LIST changes: -ACETAMINOPHEN 1000 MG/100 ML IV IV ONE; -CLINDAMYCIN 600 MG/54 ML D5W IV SCH; -LACTATED RINGER'S 1000ML 1,000 ML IV SCH
== END | disposition home or self-care (01) ==
LOC: C.LABMFLN 10:41
PROVIDERS: ATTEND Family Medicine
DX: H54.7 Unspecified visual loss (principal); F91.3 Oppositional defiant disorder; R21 Rash and other nonspecific skin eruption

== ENCOUNTER → 2018-03-14 | Outpatient (CLI) | payer OTHER ==
[~2018-03-14] MED LIST changes: -CLON0.5T3 PO; +CLON0.5T9 PO; -ONDA4TAB10 SL
[2018-03-14 13:45] LABS: BLOOD UREA NITROGEN 13 mg/dl (7-18); CALCIUM 9.7 mg/dl (8.5-10.1); CARBON DIOXIDE 28 mmol/L (21-32); CREATININE 0.88 mg/dl (0.60-1.20); GLUCOSE 101 mg/dl (70-99); POTASSIUM 3.6 mmol/L (3.5-5.1); SODIUM 141 mmol/L (136-145)
== END | disposition home or self-care (01) ==
LOC: C.LABMFLN 09:26
PROVIDERS: ATTEND Family Medicine
DX: E89.0 Postprocedural hypothyroidism (principal); I10 Essential (primary) hypertension; E55.9 Vitamin D deficiency, unspecified